=== PATIENT | female | born 1980 | race Caucasian/White ===

== ENCOUNTER 2022-01-06 09:28 | Outpatient (CLI) | payer BC, SELFPAY ==
--- NOTE | 2022-01-06 09:45 | CRLHL7_ITS ---
For Patients: As a result of the Century Cures Act, medical imaging exams and procedure reports are released immediately into your electronic medical record. You may view this report before your referring provider. If you have questions, please contact your health care provider. BILATERAL SCREENING MAMMOGRAM WITH COMPUTER-AIDED DETECTION AND TOMOSYNTHESIS TECHNIQUE: CC and MLO views were obtained. These mammographic images have been obtained using full-field digital technique. These mammographic images were interpreted with the benefit of computer-aided detection. Breast Tomosynthesis was used in this interpretation. COMPARISON FILM: 12/22/20, outside [place]. FINDINGS: The breasts are heterogeneously dense, which may obscure small masses IMPRESSION: There is no radiographic evidence for malignancy. ASSESSMENT: BI-RADS Category 1: Negative RECOMMENDATION: Routine screening mammogram in 1 year. A lay language report of this examination will be provided to the patient. Luke Arcos M.D. Diagnostic Radiologist [email or web address] AMANDA/Dictated by: Luke Arcos MD @ 01/06/2022 11:41:00 AM (Electronically Signed)
== END 2022-01-06 09:29 | disposition home or self-care (01) ==
LOC: MAMMO 09:29
PROVIDERS: Visit Provider Physician Assistant
DX: Z12.31 Encounter for screening mammogram for malignant neoplasm of breast (principal); R92.2 Inconclusive mammogram
CPT/HCPCS: 77063; 77067

== ENCOUNTER 2022-06-29 06:58 | Outpatient (CLI) | payer BC, SELFPAY ==
--- NOTE | 2022-06-29 07:15 | CRLHL7_ITS ---
For Patients: As a result of the Century Cures Act, medical imaging exams and procedure reports are released immediately into your electronic medical record. You may view this report before your referring provider. If you have questions, please contact your health care provider. CLINICAL HISTORY: Right lower quadrant pain TECHNIQUE: 2D bello scale ultrasound. In addition color Doppler and spectral Doppler analysis was performed of the pelvis using a transabdominal and transvaginal approach. Transabdominal approach somewhat limited due to undistended bladder. FINDINGS: The myometrium has a normal uniform echotexture. The uterus measures 8.3 x 3.1 x 4.6 cm. The endometrial lining appears normal and measures 5 mm in thickness. The right ovary measures 2.8 x 2.0 x 2.8 cm in size and the left ovary measures 2.0 x 1.2 x 1.0 cm. The small cyst is present within the right ovary measuring 1.9 x 1.2 x 1.9 cm with internal echoes. The ovaries demonstrate normal arterial and venous blood flow on color Doppler and spectral Doppler analysis. There are no suspicious fluid collections within the cul-de-sac. IMPRESSION: Small hemorrhagic right ovarian cyst measuring 1.9 cm. No excess pelvic free fluid. No adnexal mass or ovarian torsion. Dictated by Luke Arcos MD @ 06/30/2022 8:39:11 AM (Electronically Signed)
== END 2022-06-29 06:59 | disposition home or self-care (01) ==
PROVIDERS: Visit Provider Physician Assistant
DX: R10.31 Right lower quadrant pain (principal); N83.201 Unspecified ovarian cyst, right side
CPT/HCPCS: 76830; 76856; 93976

== ENCOUNTER 2022-06-30 16:53 | Outpatient (CLI) | payer BC, SELFPAY | END 2022-06-30 16:54 | disposition home or self-care (01) | LOC: NFLDREF 07-01 00:34 | PROVIDERS: PCP Physician Assistant; Referring Provider Physician Assistant; Visit Provider Physician Assistant | DX: Z83.49 Family history of other endocrine, nutritional and metabolic diseases (principal) | CPT/HCPCS: 84443 ==